=== PATIENT | male | born 1945 | race Caucasian/White ===

== ENCOUNTER 2017-12-22 08:19 | Emergency (ER) | payer MEDICARE, OTHER ==
[2017-12-22] MEDS ORDERED: Ziprasidone 20 MG VIAL ONE (09:11)
[2017-12-22] MEDS ORDERED: diphenhydrAMINE 50 MG/ML VIAL ONE (09:11)
[2017-12-22] MEDS ORDERED: Sterile Water 100 ML ONE (09:12)
[2017-12-22] MEDS ORDERED: Lidocaine 1% 20 ML MDV ONE (09:38)
--- NOTE | 2017-12-22 10:07 | RAD ---
RIGHT HAND THREE VIEWS: History: 72-year-old male with history of injury to right hand. Closed in a door, laceration. FINDINGS: There is some soft tissue swelling and evidence for soft tissue injury and laceration over the dorsal aspect of the hand, particularly overlying the fourth metacarpal region. Mild degenerative changes b ut no acute fracture or dislocation. No foreign body. IMPRESSION: Soft tissue swelling and laceration and injury over the dorsal aspect of the hand. No fracture or dis location or foreign body. POS: TPC
[2017-12-22] MEDS ORDERED: Adacel (T-DAP) 0.5 ML VIAL ONE (10:13)
== END 2017-12-22 10:55 ==
LOC: NAV ERS 08:19
DX: S61.411A Laceration without foreign body of right hand, initial encounter (principal); E78.5 Hyperlipidemia, unspecified; I10 Essential (primary) hypertension; F25.9 Schizoaffective disorder, unspecified; Z79.899 Other long term (current) drug therapy; W23.0XXA Caught, crushed, jammed, or pinched between moving objects, initial encounter
CPT/HCPCS: 12002; 90471; 90715; 96372; J1200; J2001; J3486

== ENCOUNTER 2018-11-22 16:25 | Outpatient (CLI) | payer MEDICARE, OTHER ==
--- NOTE | 2018-11-22 16:54 | RAD ---
XR Femur Rt 2 View STANDARD History: Fall Comparison: None. Findings: There is loss of normal sphericity of the femoral head/neck junction. Obturator ring is int act. Soft tissues are unremarkable. No significant joint effusion. 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
--- NOTE | 2018-11-22 16:56 | RAD ---
XR Knee Lt 4 View STANDARD History: Fall Comparison: None. Findings: No acute fracture or malalignment. No significant joint effusion. Low-grade medial compartm ent joint space narrowing. Mild enthesopathic changes of the quadriceps tendon. Mild vascular calcifications. Impression: No acute fracture or malalignment.
--- NOTE | 2018-11-22 16:56 | RAD ---
XR Femur Lt 2 View STANDARD History: Fall Comparison: None. Findings: Loss of normal spur CT of the left femoral head/neck junction. Left obturator ring is intac t. No acute fracture or malalignment. Impression: Degenerative disease left hip. No acute fracture or malalignment.
--- NOTE | 2018-11-22 16:57 | RAD ---
AP pelvis one view HISTORY: Fall. Pelvic injury. FINDINGS: Sacral alae and pelvic rings are intact. Mild degenerative changes of the hips. No displace d fractures are apparent. Phleboliths overlie the pelvis. Apices of the iliac crests are excluded from the image. IMPRESSION: No significant abnormalities are demonstrated.
== END 2018-11-22 16:26 | disposition home or self-care (01) ==
LOC: NAV RAD 16:25
PROVIDERS: ATTEND Internal Medicine
DX: W19.XXXA Unspecified fall, initial encounter (principal); M16.0 Bilateral primary osteoarthritis of hip
CPT/HCPCS: 72170

== ENCOUNTER 2019-05-05 12:52 | Inpatient (IN) | payer MEDICARE, OTHER ==
[~2019-05-05 12:52] MED LIST: Acetaminophen 325 MG TAB PO PRN; Ondansetron ODT 4 MG TAB SL PRN; Ondansetron PF 4 MG/2 ML Vial IVP PRN
[2019-05-05 13:40] LABS: #Basophils 0.1 thou/uL (0.0-0.2); #Eosinphils 0.2 thou/uL (0.0-0.7); #Lymphocytes 2.6 thou/uL (1.20-3.40); #Monocytes 0.6 thou/uL (0.11-0.59); #Neutrophils 4.7 thou/uL (1.40-6.50); %Basophils 0.8 % (0.0-1.0); %Lymphocytes 31.9 % (21.0-51.0); %Monocytes 7.9 % (0.0-10.0); %Neutrophils 57.4 % (42.0-75.0); Hemoglobin 13.2 g/dL (14.0-18.0); Mean Corpuscular HGB CONC 32.9 g/dL (32.0-36.0); Mean Corpuscular Hemoglobin 29.5 pg (27.0-31.0); Mean Corpuscular Volume 89.5 fL (78.0-98.0); Mean Platelet Volume 8.1 fL (7.4-10.4); Platelet Count 188 thou/uL (130-400); Red Blood Cell (RBC) Count 4.48 mill/uL (4.70-6.10); White Blood Cell (WBC) Count 8.2 thou/uL (4.8-10.8)
--- NOTE | 2019-05-05 13:51 | RAD ---
LEFT FOOT THREE VIEWS: HISTORY: Pain. Cellulitis. COMPARISON: None. FINDINGS: There is some mild coarsening of the trabecula along the medial aspect of the great toe metatarsophal angeal joint. Moderate degenerative change of the great toe metatarsal sesamoid joints. No acute fracture or malalignment. No definite evidence for osteomyelitis. Soft tissue swelling of the forefoot. IMPRESSION: No definite evidence of osteomyelitis. If there is continued clinical concern, MRI is recommended. POS: TPC
[2019-05-05 13:56] LABS: ALT (SGPT) 9 U/L (8-55); AST (SGOT) 10 U/L (5-34); Albumin 4.1 g/dL (3.4-4.8); Alkaline Phosphatase 92 U/L (40-110); Anion Gap 15 mmol/L (10-20); BUN (Urea Nitrogen) 12 mg/dL (8.4-25.7); Bilirubin, Total 0.3 mg/dL (0.2-1.2); Calc. Creatinine Clearance 0 mL/min (70-130); Calcium 9.4 mg/dL (7.8-10.44); Carbon Dioxide 27 mmol/L (23-31); Chloride 107 mmol/L (98-107); Estimated GFR-MDRD Greater than 90; Globulin 2.8 g/dL (2.4-3.5); Glucose 71 mg/dL (83-110); Potassium 4.2 mmol/L (3.5-5.1); Protein, Total 6.9 g/dL (5.8-8.1); Sodium 145 mmol/L (136-145)
[2019-05-05] MEDS ORDERED: Ciprofloxacin Lactate/D5W 400 mg/200 ml Premix ONE (14:22)
[2019-05-05 15:59] VITALS: BMI 25.4
[2019-05-05] MEDS ORDERED: Milk Of Magnesia 30 ML UDCUP PO PRN (17:58)
[2019-05-05] MEDS ORDERED: Acetaminophen 325 MG TAB PO PRN (18:19)
[2019-05-05] MEDS ORDERED: Guaifenesin DM 100-10/5 ML UDCUP PO PRN (18:23)
[2019-05-05] MEDS ORDERED: Loperamide HCl 2 MG CAP PO PRN (18:23)
[2019-05-05] MEDS: Divalproex Sodium 125 mg Sprinkle Capsule PO SCH (19:53)
[2019-05-05] MEDS: Atorvastatin Calcium 20 MG TAB PO SCH ×2 (19:53→20:50)
[2019-05-05] MEDS: Donepezil HCl 10 MG TAB PO SCH (19:54)
[2019-05-06] MEDS: Furosemide 20 MG TAB PO SCH (08:38)
[2019-05-06] MEDS: Divalproex Sodium 125 mg Sprinkle Capsule PO SCH ×2 (08:39→20:16)
[2019-05-06] MEDS ORDERED: Iopamidol 370 76% 100 ML VIAL ONE (09:00)
[2019-05-06] MEDS ORDERED: Prevnar 13-Val Conj/PF 0.5 ML SYRINGE IM ONE (09:00)
[2019-05-06] MEDS ORDERED: FLU VACC QS2019-20(6MOS UP)/PF 60 MCG/0.5 ML SYRINGE IM ONE (09:00)
--- NOTE | 2019-05-06 17:11 | CT ---
CTA OF THE LEFT LOWER EXTREMITY 05/06/19 TECHNIQUE: Multiple CTA images were obtained of the abdomen and pelvis with extension into both lower extremitie s. Three dimensional reformatted images were constructed from the raw data. No comparisons are availa ble. FINDINGS: There is moderate to severe narrowing involving the celiac artery origin. The SMA is patent. There is mild narrowing involving the origin of the right renal artery. The left main renal artery is patent . There is moderate narrowing involving the origin of the TAISHA artery. Left common iliac artery and iliac bifurcation is seen. Left external iliac artery and left common fe moral artery is patent. The left femoral bifurcation is patent. Left superficial femoral artery is pa tent. Left popliteal artery is patent. The left anterior tibial artery is patent. The tibioperoneal t runk is patent. There is three vessel runoff to the level of the ankle. There is some mild atheroscle rotic irregularity involving the proximal to mid left anterior tibial artery. The right common iliac artery and iliac bifurcation is patent. The right external iliac artery is pat ent. The common femoral and femoral bifurcation on the right is patent. Right superficial femoral art tc is patent. The right popliteal artery is patent. The anterior tibial artery demonstrates some mil d narrowing atherosclerotic involving the proximal and mid aspect. The tibioperoneal trunk and insurance policy issue clerk ior tibial and peroneal arteries are patent. There is three vessel runoff to the ankle. No free fluid or enlarged lymph nodes are evident. The visualized adrenal glands are unremarkable ap pearing. The visualized small and large bowel are unremarkable appearing. There is scattered degenera tive and osteoarthritic change. IMPRESSION: 1. Multifocal areas of mild atherosclerotic irregularity involving the proximal to mid anterior tibial arteries bilaterally. No additional hemodynamically significant stenosis is seen involving th e lower extremity arterial structures. 2. 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 There is some mild na rrowing involving the origin of the right renal artery. There is moderate narrowing involving the brenda gin of the TAISHA. POS: OFF
--- NOTE | 2019-05-06 18:11 | PRG ---
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 He is eating well. OBJECTIVE: EXTREMITIES: Left foot shows markedly decreased erythema and decreased tenderness and swelling. There are still some tenderness and erythema around the left great toe. Culture of the drainage shows no growth in [address] angio of the foot shows mild distal atherosclerosis. VITAL SIGNS: Show temperature 96, pulse 58, respirations 18, O2 saturations 95% on room air, blood pressure 149/80. LUNGS: Clear. CARDIAC: Showed regular rhythm. LABORATORY DATA: Showed white count 8200, hematocrit 40, hemoglobin 13. Sodium is 145, potassium 4.2, chloride 107, bicarb 27, BUN 12, creatinine 0.81, glucose 71, lactate 2.0. Liver functions are normal. ASSESSMENT: Resolving cellulitis to left great toe with negative culture and with no significant ischemia. PLAN: Switch IV ciprofloxacin to oral Cipro 500 twice daily. Monitor 24 more hours and possibly discharge home. Job ID: [id number]
[2019-05-06] MEDS: Atorvastatin Calcium 20 MG TAB PO SCH (20:15)
[2019-05-06] MEDS: Donepezil HCl 10 MG TAB PO SCH (20:16)
[2019-05-06] MEDS: Ciprofloxacin 500 MG TAB PO SCH (20:16)
--- NOTE | 2019-05-07 00:03 | HP ---
HISTORY OF PRESENT ILLNESS: The patient is an unfortunate 73-year-old white male, who has been living at the [facility] for several years secondary to severe dementia and schizoaffective disorder with behavioral disturbances. This admission however is prompted by recurrent erythema, tenderness and swelling of the left great toe and distal foot. This is despite being treated with Keflex 500 mg 3 times daily for the last 10 days. He has had no fever, or chills, but has had significant pain in his foot. He did have some transient improvement when on the Keflex, but then when discontinued, the foot has gotten more swollen, red and tender. There is some drainage around the great toenail. There is no history of trauma. No history is obtained from the patient because of his dementia. His review of systems is therefore unobtainable except from the nurses at the [facility], who states that he has not had any nausea, vomiting, cough, fever, chills, or diarrhea. He has not had any trauma to the foot. He is at his baseline mental status. PAST MEDICAL HISTORY: Remarkable as mentioned above for dementia, schizoaffective disorder, altered mental status at times, hyperlipidemia, hypertension. ALLERGIES: HE IS ALLERGIC TO PENICILLIN. MEDICATIONS: From the snf included; 1. Namenda 10 mg twice daily. 2. Seroquel 25 mg twice daily. 3. Potassium 10 mEq daily. 4. Furosemide 20 mg daily. 5. Donepezil 10 mg nightly. 6. Depakote 375 twice daily. 7. Atorvastatin 20 mg nightly. PHYSICAL EXAMINATION: GENERAL: The patient is an elderly white male, lying in bed, no acute distress except for tenderness on palpation of his toe. VITAL SIGNS: Showed him to have temperature 96, pulse 54, respirations 16, O2 saturations 95% on room air, blood pressure 165/80. HEENT: Pupils are equal, round, and reactive to light and accommodation. Sclerae anicteric. Conjunctivae pale. Oral mucous membranes slightly hydrated. NECK: Supple. There are no nodes or masses. JVP is not elevated. LUNGS: Clear. CARDIAC: Showed regular rhythm. ABDOMEN: Soft and nontender. SKIN/EXTREMITIES: Display left great toe is red and swollen as is the distal foot, minimal drainage. No palpable pedal pulses. ASSESSMENT: 1. Recurrent cellulitis of the left foot. Culture pending. Possible ischemia to the foot. 2. Stable dementia. 3. Stable hypertension. 4. Stable hyperlipidemia. PLAN: 1. Start on IV ciprofloxacin. Monitor response. 2. Consider CT angio to evaluate circulation. 3. Restart prehospitalization medications. Job ID: [id number]
[2019-05-07] MEDS: Ciprofloxacin 500 MG TAB PO SCH (07:48)
[2019-05-07] MEDS: Divalproex Sodium 125 mg Sprinkle Capsule PO SCH (07:48)
[2019-05-07] MEDS: Furosemide 20 MG TAB PO SCH (07:48)
[2019-05-07 08:02] VITALS: BP 151/68; TEMP 96.8
== END 2019-05-07 10:32 | DRG 603 ==
LOC: NAV ERS 12:52 → NAV ACUTE 15:41
PROVIDERS: ADMIT Internal Medicine; ATTEND Internal Medicine
DX: L03.032 Cellulitis of left toe (principal); F03.91 Unspecified dementia, unspecified severity, with behavioral disturbance; F25.9 Schizoaffective disorder, unspecified; E78.5 Hyperlipidemia, unspecified; I10 Essential (primary) hypertension; Z79.899 Other long term (current) drug therapy; Z88.0 Allergy status to penicillin
CPT/HCPCS: 80053; 83605; 85025; 87070; 87205; 90471; 90670; 90686; 96365; G0008; G0009; J0744; Q9967